=== PATIENT | female | born 2000 | race Caucasian/White ===

== ENCOUNTER → 2020-03-04 16:16 | Outpatient (CLI) | payer MEDICAID, SELFPAY ==
[2020-03-04 17:18] LABS: Absolute Lymphocyte Count 1.99 X10^3/uL (0.83-4.51); Basophil# 0.03 X10^3/uL; Basophil% 0.3 % (0-1); Eosinophil# 0.16 X10^3/uL; Eosinophils% 1.6 % (0-5); Hematocrit 39.4 % (37-47); Hemoglobin 13.4 g/dL (12.0-15.0); Lymphocyte # 1.99 X10^3/ul (4.0); Lymphocyte % 20.5 % (19-41); Mean Corpuscular Hgb 30.9 pg (27.0-32.0); Mean Platelet Vol. 11.6 fl (6.2-12.0); Monocyte% 5.1 % (0-10); NRBC Flagged by Analyzer 0 % (0-5); Neutrophil # 6.99 X10^3/uL (2.7-7.7); Neutrophil % 72.1 % (47-70); Platelet Count 237 K/mm3 (150-450); RBC Distribution Width CV 12.7 % (11.6-14.6); RBC Distribution Width SD 41.9 fl (35.1-43.9); Red Blood Count 4.33 M/mm3 (4.2-5.4); White Blood Count 9.7 K/mm3 (4.4-11.0)
[2020-03-04 17:21] LABS: Color, Urine Yellow (Yellow); Glucose, Dipstick Normal (Normal); Ketone-Dipstick Negative (Negative); Leukocyte Esterase-Dipstick 100 /ul (Negative); Nitrite-Dipstick Negative (Negative); Occult Blood-Urine Negative /ul (Negative); Protein-Dipstick 15 mg/dl (Negative); Urine Bilirubin Dipstick Negative (Negative); Urine Clarity Sl. Cloudy (Clear); Urine Urobilinogen Normal (Normal); Urine pH 6.5 (5.0 - 8.0)
[2020-03-04 17:48] LABS: Thyroid Stim Hormone (TSH) 0.62 uIU/mL (0.358-3.74)
[2020-03-04 17:54] LABS: Amphetamine Urine VISTA NEGATIVE (<1000 ng/mL); Barbiturate Urine VISTA NEGATIVE (< 200 ng/mL); Benzodiazepine Urine VISTA NEGATIVE (< 200 ng/mL); Cocaine Urine VISTA NEGATIVE (< 300 ng/mL); Ecstacy Urine VISTA NEGATIVE (< 500 ng/mL); Methadone Urine VISTA NEGATIVE (< 300 ng/mL); PCP Urine VISTA NEGATIVE (< 25 ng/mL); THC Urine VISTA POSITIVE (< 50 ng/mL); Vista UDS pH Range 7
[2020-03-04 19:12] LABS: Chlamydia Trachomatis by PCR Negative (Negative); Neisserai gonorrhoeae by PCR Negative (Negative); Probe Check PASS; Sample Adequacy Control PASS; Specimen Processing Control PASS
[2020-03-07 09:43] LABS: HIV - WCH Non-Reactive (Nonreactive); Hepatitis B Surface Antigen Non-Reactive (Nonreactive); Hepatitis C Antibody Non-Reactive (Nonreactive); Rubella IgG 141.5 IU/mL
[2020-03-10 02:00] LABS: Prenatal RPR NONREACTIVE (NONREACTIVE)
== END ==
PROVIDERS: Referring Provider Obstetrics & Gynecology; Visit Provider Obstetrics & Gynecology
DX: Z34.82 Encounter for supervision of other normal pregnancy, second trimester (principal)
CPT/HCPCS: 80307; 81002; 84443; 85025; 86703; 86762; 86803; 87340; 87491; 87591

== ENCOUNTER → 2020-06-29 10:41 | Outpatient (CLI) | payer MEDICAID, SELFPAY ==
[2020-06-29 14:01] LABS: Glucose Challenge Gest 1H 50g 92 mg/dL (70-140)
[2020-06-29 14:05] LABS: Hemoglobin 12.4 g/dL (12.0-15.0); Mean Corp Hgb Conc 32.6 g/dL (32-36); Mean Corpuscular Hgb 31.3 pg (27.0-32.0); Mean Platelet Vol. 11.8 fl (6.2-12.0); Platelet Count 195 K/mm3 (150-450); RBC Distribution Width CV 12.9 % (11.6-14.6); RBC Distribution Width SD 45.3 fl (35.1-43.9); Red Blood Count 3.96 M/mm3 (4.2-5.4); White Blood Count 11.8 K/mm3 (4.4-11.0)
== END ==
PROVIDERS: Visit Provider Obstetrics & Gynecology
DX: Z34.83 Encounter for supervision of other normal pregnancy, third trimester (principal)
CPT/HCPCS: 36415; 82950; 85027

== ENCOUNTER → 2020-08-18 15:47 | Outpatient (CLI) | payer MEDICAID, SELFPAY ==
[2020-08-18 18:12] LABS: Amphetamine Urine VISTA NEGATIVE (<1000 ng/mL); Barbiturate Urine VISTA NEGATIVE (< 200 ng/mL); Benzodiazepine Urine VISTA NEGATIVE (< 200 ng/mL); Cocaine Urine VISTA NEGATIVE (< 300 ng/mL); Ecstacy Urine VISTA NEGATIVE (< 500 ng/mL); Methadone Urine VISTA NEGATIVE (< 300 ng/mL); PCP Urine VISTA NEGATIVE (< 25 ng/mL); THC Urine VISTA POSITIVE (< 50 ng/mL); Vista UDS pH Range 6
== END ==
PROVIDERS: Visit Provider Obstetrics & Gynecology
DX: Z34.83 Encounter for supervision of other normal pregnancy, third trimester (principal); Z36.85 Encounter for antenatal screening for Streptococcus B
CPT/HCPCS: 80307; 87081

== ENCOUNTER 2020-09-16 07:50 | Inpatient (IN) | payer MEDICAID, SELFPAY ==
[2020-09-16] VITALS (23 sets, daily range): BP systolic 99–137; BP diastolic 54–89; PULSE 74–181; RESP 16–18; TEMP 36.1–36.9; O2SAT 49; BMI 31.5
[2020-09-16] MEDS: Lactated Ringers 1,000 ML 50 ML IV (08:15)
[2020-09-16 08:40] LABS: Absolute Lymphocyte Count 2.32 X10^3/uL (0.83-4.51); Absolute Neutrophil Count 8.6 X10^3/uL (2.0-7.7); Basophil# 0.03 X10^3/uL; Basophil% 0.2 % (0-1); Eosinophil# 0.54 X10^3/uL; Eosinophils% 4.3 % (0-5); Hematocrit 37.8 % (37-47); Hemoglobin 12.7 g/dL (12.0-15.0); Lymphocyte # 2.32 X10^3/ul (4.0); Lymphocyte % 18.6 % (19-41); Mean Corp Hgb Conc 33.6 g/dL (32-36); Mean Corpuscular Hgb 30.6 pg (27.0-32.0); Mean Corpuscular Volume 91.1 fL (81-99); Mean Platelet Vol. 11.2 fl (6.2-12.0); Monocyte# 0.93 X10^3/uL; Monocyte% 7.4 % (0-10); NRBC Flagged by Analyzer 0 % (0-5); Neutrophil # 8.58 X10^3/uL (2.7-7.7); Neutrophil % 68.7 % (47-70); Platelet Count 191 K/mm3 (150-450); RBC Distribution Width CV 12.8 % (11.6-14.6); RBC Distribution Width SD 41.7 fl (35.1-43.9); Red Blood Count 4.15 M/mm3 (4.2-5.4); White Blood Count 12.5 K/mm3 (4.4-11.0)
[2020-09-16] MEDS: Oxytocin 30 units/NS 500 ml 30 UNITS/500 ML IV.SOLN IV (08:42)
--- NOTE | 2020-09-16 09:07 | HP.PCM_ITS ---
History and Physical Date of Admission: 09/16/20 ACOG ANTEPARTUM RECORD - HISTORY AND PHYSICAL (09/16/2020) Name: KATIE PENNIGNTON History of This : This is a 20-year-old G2, P1 who presents for postdate induction. care has been eventful for the baby having right ventriculomegaly with a dangling choroid possible skeletal dysplasia. Maternal- medicine indicates it is okay for patient to be delivered at [facility]. OB Physician: MARY [place]'s Physician: [facility]..................................................................... : 2000 Age: 20 Address: [address] [place] [address] [address] RADER [address] [place] [address] Phone: (h) [phone] (o) [phone] Insurance Carrier: [facility] [id number] Emergency Contact: LORETA HERNANDEZ/SPOUSE [phone] ...................................................................... Final HEATHER: 09/08/20 By Ultrasound: PARITY: (G-Total Pregnancies P-Fullterm,Premature,Induced AB,Spont AB, Ectopics, Multiple,Living) HEATHER CONFIRMATION: By LMP: 12/03/19 Final HEATHER: 09/08/20 OB PROBLEM LIST: 15 minute 2nd stage with her first child AFP/CF testing declined today, will need consent signed as such. IUD AT DELIVERY Lagging growth: MFM noted IUGR, right ventriculomegaly with dangling choroid, possible skeletal dysplasia; OK for care delivery at [facility]; plan MFM u/s q 2 weeks, weekly NST until 32 wks then 2x/week ; no version or vacuum use during or Prefers no epidural Smokes 7 cigs per day, plans to quit ALLERGIES: No Known Drug Allergies MEDICATIONS: Augmentin 875 mg-125 mg tablet One pill by mouth twice a day 28 mg-800 mcg tablet daily SOCIAL HISTORY: Smoking - Smokes--advised to quit 7 per day Alcohol Use - denies drinking Diet - moderate, balanced diet Lifestyle - moderate stress lifestyle and single Exercise - none 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 Drug Use - denies use of street drugs Sexual Activity - [employer] Residence - Lives with SO/FO Place of - AYAZ Garsia Spouse-Sig Other Name - FOB- Loreta Hernandez Spouse-Sig Other Occupation - Labor Spouse-Sig Other Phone No - [phone] Children Name(s) - Pilo () PRIOR DELIVERY HISTORY DEL DATE GEST LAB WT LB WT OZ TYPE ANES LABOR TX Oct 05 40 12 8 7 Vag Local No ANTEPARTUM FLOW CHART VISIT GE RTC FU F F ND U U DATE WK MD WKS HT PN HR M SS BP ED WT ND GL D EF ST __ ____ ___ __ __ ___ __ __ __ ___ __ __ __ ___ __ 30 Aug JMW 6 37 V + + 112/68 sl 171 tr ne 4 85 -2 Aug 39 JMW 1 37 V + + 106/64 sl 174 - - 3 75 -2 14 Aug 38 CM 1 38 V + + 114/68 0 169 1+ - 07 Aug 37 CM + + 96/64 0 167 1+ - 03 Aug 37 JM 1 37 V + + 104/62 0 170 tr - 24 Nov 35 CM 1 35 V + + 110/70 tr 168 tr - 09 Jul 33 CM + + 102/60 tr 167 - - 29 Oct 32 CM 1 31 V + + 124/70 0 167 - - 22 Oct 31 CM 1 30 V + + 116/78 0 161 1+ ne 14 Jun 29 CH 2 28 V + + 102/68 0 162 1+ - 02 May 23 CH 4 21 on + 106/66 0 151 1+ - 05 May 04 CH 4 17 on US 104/50 0 145 tr - Apr 01 CH 3 + + 102/60 0 139 tr - Feb 26 CH 4 on US 90/60 0 141 tr - ANTEPARTUM NOTE(S): Sep 14 2020: Good FM and Induce Sep 05 2020: Good FM, reactive NST Aug 29 2020: Aug 22 2020: Aug 18 2020: see note Aug 09 2020: Jul 25 2020: Jul 14 2020: Jul 07 2020: Jun 29 2020: May 18 2020: Apr 20 2020: feeling well. Apr 04 2020: feeling well. Mar 07 2020: feeling well. NOB papers today. COMPREHENSIVE ANTEPARTUM NOTE(S): Sep 14 2020: Katie is here for PNV. States she is feeling increase perineal pressure. No LOF. No CTX. Has been having a pink mucousy discharge this week. Good FM. No edema currently but states she does swell some by end of day. Urine dipped tr and neg. LSS Sep 05 2020: Katie is here for her NST at 39 w 4 d. She states that she feels well, and notes good FM. She denies spotting/LoF. Katie states that she has some cramping/BH ctx's, all mild and irregular. Slight edema noted around ankles. NST reactive, read per Dr. Arauz. AW Aug 29 2020: Katie is here for NST then visit at 38.4w. Baby active. No edema. Urine 1+ protein and looks concentrated. Water given and reminded to drink. Irreg contr at home. None noted on monitor. NST read as reactive per Dr BLAKE. Would like cervix check today- labor 2 h w first baby and is 35 min away. DRAmina. Aug 29 2020: 38/4w visit. Resolved IUGR, ventriculomegaly. Potential skeletal dysplasia. NO operative delivery, even in c/s. Growth US this with MFM. NSTs early in week in our office, BPP with MFM. Declines term induction, would like membrane sweeping next week. Tobacco abuse, encouraged cessation. 2 cm in office today, NST REACTIVE. F/u 1w. CM Aug 25 2020: H taken to OB. tkg Aug 22 2020: Katie is here for visit following NST at 37.4 w. Baby active, No edema. Smells strongly of smoke. States 5-7 cigarettes daily. Urine concentrated w strong odor. Long dip done- Trace Leuks, 1+ protein, sg 1.010, pH 6.0 w remainder WNL. States hasn't had anything to eat or drink yet today. Large glass of water given and enc fluids. NST reactive per Dr BLAKE. DRAmina. Aug 22 2020: 37/4w visit. NST REACTIVE. skeletal dysplasia and ventriculomegaly. Resolved IUGR. Seeing MFM. F/u 1w. CM Aug 18 2020: Reviewed FM, SROM, and labor. Influenza and Tdap encouraged. Tox screen sent today with GBS. Intererested in LARC, wants IUD placed after delivery. LMT Aug 18 2020: 37wk, saw MFM for BPP today. Records pending. NST saturday, BPP via MFM . GBS collected today, drug screen today. Pt desires immediate IUD at delivery, r/b/a discussed. Desires 41wk IOL. JM Nov 24 2020: 35/5w visit. IUGR resolved on last US EFW/AC both 16%. NST reactive today, next Saturday at 1630 on L. Ventriculomegaly stable. F/u 1w. CM Aug 09 2020: Katie is here for NST and visit. Baby active. Minimal edema. Cont to smoke about 5, maybe 5-9 cigarettes daily. Urine concentrated. Water given and fluids enc. NST read as ractive by Dr BLAKE. Plans to breastfeed. AJY. Jul 25 2020: 33/4w visit. IUGR per MFM based on AC 10% (EFW 17%) on last growth US. Twice weekly testing. Getting mixed messages from M - will call and confirm what MRI showed. Will need IOL 38-38/ if continued IUGR. growth US q2w. Smoking cessation. F/u 2w. CM Jul 25 2020: Katie is here for NST and visit at 33.4 w. Baby active. Minimal edema in ankles. Some days in toes per pt. Rings off easily. Cont to smoke 4-9 cigarettes daily. Enc to cut down. Diet discussed and enc more protein intake alma w close pregnancies. NST read as reactive by Dr BLAKE. JAY. Jul 14 2020: [facility] visit 07/01/20 w/plan to follow up q 2 wks [facility]. NST's 2 x weekly. NST this morning. She has been feeling well. Good FM. Jul 14 2020: 32/0 w visit. complicated by: IUGR getting q2w growth US, MRI 07/12 has f/u today for results. NST today REACTIVE. F/u 1w with 2x weekly NSTs. CM Jul 07 2020: Katie is here for PNV. States she is feeling real good. Good FM. No issues with swelling/edema. Eating well and getting fluids. Urine dipped 1+ and neg. No concerns for today. LSS Jul 07 2020: 31/0w PNV. complicated by: IUGR getting q2w growth US (next is 07/14), anomalies (right ventriculomegaly) getting MRI on Thursday 07/12. WIll need 2x weekly testing after 32w. Feeling well today with good FM. F/u 1w Jun 29 2020: Katie is here today for her PNV. Good FM. No edema present today. 1+ protein in UA today. States that for the past 10 days she has tingling on pelvic floor. The tingling is one time a day that does not last very long then it is gone. Medications and allergies reviewed today. No other complaints or concerns expressed today. [facility] Jun 29 2020: Reports that she has appt with [facility] this Saturday after she missed her last one. Understands sons diagnosis and per patient he will be a little person, but he does have a big head. I might need a csection. Rpeorts that her genetic testing was negative. Her boyfriends phone is back on and can reach her through him. Feeling good FM. FHR 138. Overall feeling well and seems nonchalant about dx. To return in 1 week per [facility] directive of weekly appts then at 32 weeks twice weekly appts. Will continue Q2 week Ultrasounds and BPPs with [facility] May 18 2020: Katie is here today for her PNV. She is doing good. Good FM and US today. No edema present today. Medications and allergies reviewed today. GCT given today to be drawn at next visit. No questions or concerns expressed today. [facility] May 18 2020: Follow up US today is still SGA <10th%, FL 7%, HC 12% and AC 4.5%. 4C heart and kidneys visualized with PORTIA WNL. Is agreeable to referral to [facility] for genetic counseling counseling and US. Advised her they would then give us a POC to follow. SHe does not have a phone or BF either. She will call us Saturday to see if we have an appt scheduled. Needs to return here in 6 weeks for third trimester labwork because she will be gone the 2.5 weeks prior. GLucola given with instructions. To call with questions or concerns. _ Apr 20 2020: Anatomy US today reveals SGA fetus with EFW <10th%. FL <10th% and HC <12th%. First son was 8lb7oz. Gender sent home in an envelope. FHR on US 144. All anatomy visualized and WNL with exception of kidneys and 4ch heart having limited views. Feeling movement. Has no questions or concerns. Will return in 4 weeks for routine PNV and repeat US then possible referral to [facility] . - Apr 04 2020: Reports +FM two weeks ago, but hasn't felt anything since. Cannot find FHR with doppler. Bedside US by provider shows FHR int he 120s with good FM . Feeling well with no questions or concerns. To return in 2-3 weeks for anatomy US and PNV. - Mar 24 2020: TELEHEALTH NOB VISIT. Katie is a 20 year old with an HEATHER of 09/08/2020, current GA is 16 w 0 d. She resides with /FO, Loreta Hernandez, and their 7 month old son. Past history updated. Delivery at [facility] is planned, she prefers not to have an epidural, and will breastfeed. She nursed her son for 5 months. Office practice patterns reviewed, labs have been collected. Emergencies/danger signs to report, how to contact the office during/after hours, round ligament pain, reporting a suspected UTI, and common OTC medications approved/not approved for use during reviewed. She states that she still has some N/V, as she did throughout her first , and states that the nausea is mostly in the morning then she feels okay the rest of the day. Reviewed measures that may help minimize nausea, including small frequent, balanced meals with protein included throughout day, adequate water hydration of at least 1 gallon per 24 hours, trying carb rich foods when nauseated, and trying motion sickness bracelets. She takes an OTC vitamin and states that she tolerates this well. Katie has an aunt with Down Syndrome, no other history noted on Genetic Screening form. Initially she was undecided about AFP/CF testing, but states today that she will decline both. She denies any history of depression/anxiety; EPDS on 03/07/2020: 1. She smokes 7 cigs per day, and is planning to quit. Katie denies use of drugs or ETOH. water/caloric/dietary needs, including recommended weight gain, limiting empty calories, limiting caffeien to one cup a day, and food safety, reviewed. She takes walks several times a week, and plans to continue to do so. lifting restrictions reviewed. She states that she understands all information provided during 40 minute NOB telephone visit, and has no questions following same. AW Mar 07 2020: Dating US today reveals HEATHER of 12/24/20 consistent with LMP. GA 13w4d. FHR 173. NOB RN visit to be scheduled today. EPDS=1. To return in 4 weeks for routine PNV. - Mar 04 2020: Katie is being seen for missed menses visit. Pt is new to practice. 20 year old. Smoker. . UPT in office is positive. LMP 12/03/19. Pt is about 13 weeks and 1 day. HEATHER 09/08/20. Pt has had n/v on and off. Pt had 09/17/19 at [place] and had n/v her whole . Pt just recently stopped . Pt is unsure if she has ever had a pap. Cervical cultures to be done on urine. information reviewed and given to pt. Medications and allergies are up to date. Mar 04 2020: See above note. Will have Turkish twins. Were not trying, but not preventing eiher. FHR 160's. Will need US next week with PNV and NOB RN visit. Had labs drawn today and reviewed no news is good news. Nurse reviewed all education with her and no questions. - REVIEW OF SYSTEMS: GENERAL - Denies fever, or chills SKIN - Denies rash, new skin lesions, or change in moles EYES - Denies blurred vision, or change in visual acuity EARS - Denies ear pain, or difficulty hearing NOSE - Denies nasal congestion, discharge, or bleeding MOUTH - Denies sore throat, or difficulty swallowing NECK - Denies pain or swelling RESPIRATORY - Denies shortness of breath, cough, wheezing CARDIOVASCULAR - Denies palpitations, chest pain, orthopnea, PND, peripheral edema, syncope or claudication GASTROINTESTINAL - Denies nausea, vomiting, diarrhea, constipation, Denies abdominal pain, melena and or bright red blood GENITOURINARY - Denies dysuria, frequency of urination, urgency, or hesitancy MUSCULOSKELETAL - Denies joint or muscle pain, or back pain NEUROLOGICAL - Denies localized numbness, weakness, or tingling PSYCHIATRIC - Denies depression, anxiety, substance abuse or suicide attempts ENDOCRINE - Denies heat or cold intolerance, weight loss or gain, increasing thirst HEMATO-IMMUNOLOGIC - Denies easy bruising, bleeding, oral ulcerations or recurrent infections GENETICS SCREENING: Age 35+ years: No Thalassemia: No Neural Tube Defect: No Down Syndrome: Yes Aunt NAMRATA-SACHS: No Sickle Cell Disease: No Hemophilia: No Musc. Dystrophy: No Cystic Fibrosis: No-declines screening [place] Chorea: No Mental Retardation: No Fragile X: No Other genetic: No Other defects: No SABs/still births: No Drugs since LMP: No INFECTION HISTORY: High risk AIDS: No High risk Hepatitis: No Exposed to TB: No Exposed to Herpes: No Rash/viral illness since LMP: No History of STD: No MENSTRUAL HISTORY: *Menses Amount/Duration: 5 to 7 daysMenses Regularity: RegularFrequency: monthly* PAST SUMMARY: PARITY: 1. Total Pregnancies............ 2 2. Full Term Pregnancies........ 1 3. Premature.................... 0 4. Abortions - Induced.......... 0 5. Abortions - Spontaneous...... 0 6. Ectopics..................... 0 7. Multiple Births.............. 0 8. Living Children.............. 1 PAST #1: Date of :.................. 09/17/19 Gestation Weeks:................ 40 Length of labor(hours):......... 12 Sex:............................ M Weight-lbs:............... 8 Weight-oz:................ 7 Type of Delivery:............... Vag Type of Anesthesia:............. Local Place of Delivery:.............. [place] Treatment of Labor?:.... No Comment: 15 MIN 2ND STAGE PHYSICAL EXAMINATION General Appearence: 20 yo female in no acute distress Vital Signs: AF, VSS Heart: RRR without rubs or gallops Lungs: CTA x 2 Breasts: deferred Abdomen: gravid Pelvis: Cervix: 4 to 5 cm, 80% effaced, rupture of membranes clear fluids Presentation: cephalic Station: -2 Fetus: Size: AGA Movement: present Heart: present Labs for : KATIE PENNINGTON since 12/13/2019 ORDER DATEIN DESCRIPTION VALUE UNITS RANGE A+ COMMENT COVID 19 AG RAPID (RN COLLECT) 09/16/20 NOTE Original Ordering Provider: Linda Arauz COVID AG -RAPID *Negative results from patients with symptom onset beyond five days should be treated as presumptive and confirmed by a molecular assay if clinically necessary. Negative results should not be used as the sole basis for treatment or for patient management. *Positive results do not differentiate between SARS-CoV and SARS-CoV-2. If differentation of the specific SARS virus is desired an additional sample and an additional order is required. * This test has not been FDA cleared or approved; the test has been authorized by FDA under an Emergency Use Authorization (EAU) for use by laboratories certified under CLIA that meet the requirements to perform moderate, high, or waived complexity tests. Normal Reference Range: Negative Testing performed on PowerOasis analyzer BRIAN (lateral flow immunofluorescent assay) SARS-CoV-2 (COVID 19) Negative CBC W/DIFF, AUTOMATED 09/16/20 NOTE Original Ordering Provider: Linda Arauz WBC 12.5 K/mm3 4.4-11.0 H RBC 4.15 M/mm3 4.2-5.4 L HGB 12.7 g/dL 12.0-15.0 HCT 37.8 % 37-47 MCV 91.1 fL 81-99 MCH 30.6 pg 27.0-32.0 MCHC 33.6 g/dL 32-36 RDW CV 12.8 % 11.6-14.6 RDW SD 41.7 fl 35.1-43.9 PLT 191 K/mm3 150-450 MPV 11.2 fl 6.2-12.0 NEUT% 68.7 % 47-70 LY% 18.6 % 19-41 L MONO% 7.4 % 0-10 EO% 4.3 % 0-5 BASO% 0.2 % 0-1 IM GRAN % 0.800 % 0.0-0.9 IG% - Immature Granulocytes (promyelocytes, myelocytes and metamyelocytes) > 1% indicates that a LEFT SHIFT is Present. ABSOLUTE NEUT 8.6 X10 3/uL 2.0-7.7 H ABSOLUTE LYMPH 2.32 X10 3/uL 0.83-4.51 NRBC, FLAGGED 0 % 0-5 CULTURE, GROUP B STREPTOCOCCUS 08/18/20 NOTE Original Ordering Provider: Jaylan Chavis RELABELING DANIEL Culture Group B Beta Streptococcus is not isolated. Reviewed by MARY URINE DRUG SCREEN (VISTA) 08/18/20 NOTE Original Ordering Provider: Jaylan Chavis TO BE CONFIRMED CONFIRMATORY TESTING FOR ALL POSITIVE URINE DRUG SCREEN RESULTS WILL ONLY BE SENT OUT UPON PHYSICIAN ORDER. [facility]IST[facility] Urine Drug Screen methods provide only preliminary analytical test results. A more specific alternate chemical method must be used in order to obtain a confirmed analytical result. Gas chromatography/mass spectrometery (GC/MS) is the preferred confirmatory method. Clinical consideration and professional judgement should be applied to any drug of abuse test result, particularly when preliminary positive results are used. URINE TCA TESTING MUST BE ORDERED SEPARATELY. USE TEST MNEMONIC: [facility] UDS PH 6 AMPHETAMINES NEGATIVE <1000 ng/mL BARBITIURATES NEGATIVE < 200 ng/mL BENZODIAZIPINE NEGATIVE < 200 ng/mLw COCAINE NEGATIVE < 300 ng/mL ECSTACY NEGATIVE < 500 ng/mL METHADONE NEGATIVE < 300 ng/mL OPIATES NEGATIVE w < 300 ng/mL PCP NEGATIVE < 25 ng/mL THC POSITIVE < 50 ng/mL H Reviewed by PALMAR CBC-COMPLETE BLOOD CNT NO DIFF 06/29/20 NOTE Original Ordering Provider: HALLIE Taylor WBC 11.8 K/mm3 4.4-11.0 H RBC 3.96 M/mm3 4.2-5.4 L HGB 12.4 g/dL 12.0-15.0 HCT 38.0 % 37-47 MCV 96.0 fL 81-99 w MCH 31.3 pg 27.0-32.0 MCHC 32.6 g/dL 32-36 RDW CV 12.9 % 11.6-14.6 RDW SD 45.3 fl 35.1-43.9 H PLT 195 K/mm3 150-450 MPV 11.8 fl 6.2-12.0 Reviewed by LINDA GLUCOSE CHALLENGE GEST 1H 50G 06/29/20 NOTE Original Ordering Provider: HALLIE Taylor GLU GEST 50G 1H 92 mg/dL 70-140 Reviewed by LINDA RPR 03/04/20 NOTE Original Ordering Provider: HALLIE Taylor RPR NONREACTIVE NONREACTIVE Reviewed by FAVIOLA HEPATITIS C ANTIBODY 03/04/20 NOTE Original Ordering Provider: HALLIE Taylor HEPATITIS C AB Non-Reactive Nonreactive Non Reactive: < 0.8 Equivocal: >/= 0.8 to < 1.0 Reactive: >/= 1.0 The CDC recommends that a reactive/equivocal HCV antibody result be followed up by the HCV Nucleic Acid Amplification test ([id number]) Reviewed by FAVIOLA HEPATITIS B SURFACE ANTIGEN 03/04/20 NOTE Original Ordering Provider: HALLIE Taylor HEPB SURFACE AG Non-Reactive Nonreactive Reviewed by FAVIOLA HIV - [facility] 03/04/20 NOTE Original Ordering Provider: HALLIE Taylor HIV - [facility] Non-Reactive Nonreactive Reviewed by FAVIOLA skaggs RUBELLA IGG 03/04/20 NOTE Original Ordering Provider: HALLIE Taylor RUBELLA IGG 141.5 IU/mL Antibody results Interpretation of Immune Status < 5 IU/ml Presumed Non-immune 5 - < 10 IU/ml Equivocal > or = 10 IU/ml Presumed Immune Reviewed by FAVIOLA CT/ANDREAS [facility] BY PCR 03/04/20 NOTE Original Ordering Provider: HALLIE Taylor CHLAM TRAC PCR Negative Negative NG BY PCR Negative Negative Reviewed by FAVIOLA T AND S-NO CHARGE W/PNP 03/04/20 Reason for Type AND Screen/Red Cells: Surgery? N [facility]~[address] [place], [address]~ BLOOD TYPE GEL O POSITIVE N AB SCREEN GEL NEGATIVE N Reviewed by FAVIOLA URINE DRUG SCREEN (VISTA) 03/04/20 NOTE Original Ordering Provider: HALLIE Taylor TO BE CONFIRMED CONFIRMATORY TESTING FOR ALL POSITIVE URINE DRUG SCREEN RESULTS WILL ONLY BE SENT OUT UPON PHYSICIAN ORDER. [facility]IST[facility] Urine Drug Screen methods provide only preliminary analytical test results. A more specific alternate chemical method must be used in order to obtain a confirmed analytical result. Gas chromatography/mass spectrometery (GC/MS) is the preferred confirmatory method. Clinical consideration and professional judgement should be applied to any drug of abuse test result, particularly when preliminary positive results are used. URINE TCA TESTING MUST BE ORDERED SEPARATELY. USE TEST MNEMONIC: [facility] UDS PH 7w AMPHETAMINES NEGATIVE <1000 ng/mL BARBITIURATES NEGATIVE < 200 ng/mL BENZODIAZIPINE NEGATIVE < 200 ng/mL COCAINE NEGATIVE < 300 ng/mL ECSTACY NEGATIVE < 500 ng/mL METHADONE NEGATIVE < 300 ng/mL OPIATES NEGATIVE < 300 ng/mL w PCP NEGATIVE < 25 ng/mL THC POSITIVE < 50 ng/mL H Reviewed by FAVIOLA THYROID STIM HORMONE (TSH) 03/04/20 NOTE Original Ordering Provider: HALLIE Taylor TSH 0.62 uIU/mL 0.358-3.74 Reviewed by FAVIOLA URINALYSIS, ROUTINE (DIPSTICK) 03/04/20 NOTE Original Ordering Provider: HALLIE Taylor COLOR Yellow Yellow CLARITY Sl. Cloudy Clear GLUCOSE, UR Normal mg/dl Normal BILIRUBIN URINE Negative mg/dL Negative KETONE UR Negative mg/dl Negative SP.GR. DIPSTX 1.020 1.002-1.030 PH UR 6.5 5.0 - 8.0 PROT DIPSTX 15 mg/dl Negative H UROBILI Normal mg/dl Normal NITRITE UR Negative Negative OCCULT BLOOD-UR Negative /ul Negative LEUK ESTERASE 100 /ul Negative H Reviewed by FAVIOLA CBC W/DIFF, AUTOMATED 03/04/20 NOTE Original Ordering Provider: HALLIE Taylor WBC 9.7 K/mm3 4.4-11.0 RBC 4.33 M/mm3 4.2-5.4 HGB 13.4 g/dL 12.0-15.0 HCT 39.4 % 37-47 MCV 91.0 fL 81-99 MCH 30.9 pg 27.0-32.0 MCHC 34.0 g/dL 32-36 RDW CV 12.7 % 11.6-14.6 RDW SD 41.9 fl 35.1-43.9 PLT 237 K/mm3 150-450 MPV 11.6 fl 6.2-12.0 NEUT% 72.1 % 47-70 H LY% 20.5 % 19-41 MONO% 5.1 % 0-10 EO% 1.6 % 0-5 BASO% 0.3 % 0-1 IM GRAN % 0.400 % 0.0-0.9 IG% - Immature Granulocytes (promyelocytes, myelocytes and metamyelocytes) > 1% indicates that a LEFT SHIFT is Present. ABSOLUTE NEUT 7.0 X10 3/uL 2.0-7.7 ABSOLUTE LYMPH 1.99 X10 3/uL 0.83-4.51 NRBC, FLAGGED 0 % 0-5 Reviewed by FAVIOLA Impression /Plan: 41+ week intrauterine for Pitocin and rupture of membranes. Preparations in progress for delivery.
[2020-09-16 10:50] LABS: Amphetamine Urine VISTA NEGATIVE (<1000 ng/mL); Barbiturate Urine VISTA NEGATIVE (< 200 ng/mL); Benzodiazepine Urine VISTA NEGATIVE (< 200 ng/mL); Cocaine Urine VISTA NEGATIVE (< 300 ng/mL); Ecstacy Urine VISTA NEGATIVE (< 500 ng/mL); Methadone Urine VISTA NEGATIVE (< 300 ng/mL); PCP Urine VISTA NEGATIVE (< 25 ng/mL); THC Urine VISTA POSITIVE (< 50 ng/mL); Vista UDS pH Range 5
[2020-09-16] MEDS: Oxytocin 30 units/NS 500 ml 30 UNITS/500 ML IV.SOLN 334 UNITS IV (11:15)
--- NOTE | 2020-09-16 11:27 | PCM.OPRPT ---
Vaginal Delivery Maternal Presentation: Medically Indicated Induction Method of Induction: Pitocin, Amniotomy Medical Reason for Induction: Post term Amniotic Membrane Rupture Type: Artificial Amniotic Fluid Description: Clear Final HEATHER: 09/08/20 Final HEATHER Source: US <20 weeks Gestational age: 41 Weeks and 1 Days [place] doctor who attended delivery (if requested by OB): Joel Cook Date of Procedure: 09/16/20 Pre-Operative Diagnosis: IUP Post-Operative Diagnosis: IUP Surgery/ Procedure Performed: Spontaneous Vaginal Delivery Type of Anesthesia: None Description of Procedure: Spontaneous vaginal delivery of a viable male infant with Apgars of 9/9 from an occiput anterior presentation with clear amniotic fluid and normal three-vessel placenta. No episiotomy. First-degree midline laceration repaired with 3-0 Rapide suture. Arterial and venous blood gases sent. Sponges okay. Delivery physician: Kenny Arauz MD. Presentation: Vertex Placental Delivery Description: Spontaneous Placenta Disposition: [facility] Cord Vessel Description: 3 Vessels Cord Gases drawn per routine: ABG, VBG Cord Entanglement: None Estimated Blood Loss: 250 cc Infant A gender: Male (1 minute): 9 (5 minute): 9 Episiotomy Description: None Laceration: Midline, 1st degree Medications given after delivery: IV Pitocin Complications: None
--- NOTE | 2020-09-16 11:31 | DCINST_ITS ---
Discharge Activity: May Shower, May Take a Tub Bath May resume sexual activity in: 4-6 weeks Additional Activity Instructions:: Nothing in the vagina for 4-6 weeks. You may return to work/school in 6 weeks. Call your doctor if you observe: Inability to urinate, Inability to have a bowel movement, Using more than one pad per hour Additional Instructions: If you experience any of the following, contact your healthcare provider. * Bleeding that soaks a pad every hour for 2 hours * Fever 100.4 or higher * Unrelieved incision or abdominal pain * Swelling, redness, discharge or bleeding from your incision or episiotomy site * Your incision begins to separate * Problems urinating (including inability to urinate or burning while urinating). * Visual changes * Severe headache * Flu-like symptoms * Pain or redness in one of both of your breasts * Pain, warmth, tenderness or swelling in your legs, especially the calf area * Frequent nausea and vomiting * Symptoms of depression or anxiety If you experience any of the following, call 911 or go to the nearest Emergency Room. * Chest pain * Problems breathing * Seizure activity * Partial or complete paralysis of a body part, slurred speech, weakness or drooping of the face, or a sudden inability to walk or hold your balance Allergies/Adverse Reactions: Allergies No Known Allergies Allergy (Verified 09/16/20 08:22) Please Follow Up With: Kenny Arauz MD - [phone] When: Call to make an appointment with your doctor in 6 weeks. Test Results: Test results from this visit will be discussed in further detail at your follow- up appointment, if applicable.
--- NOTE | 2020-09-16 11:31 | PCM.DCVAG ---
Discharge Activity: May Shower, May Take a Tub Bath May resume sexual activity in: 4-6 weeks Additional Activity Instructions:: Nothing in the vagina for 4-6 weeks. You may return to work/school in 6 weeks. Call your doctor if you observe: Inability to urinate, Inability to have a bowel movement, Using more than one pad per hour Additional Instructions: If you experience any of the following, contact your healthcare provider. Bleeding that soaks a pad every hour for 2 hours Fever 100.4 or higher Unrelieved incision or abdominal pain Swelling, redness, discharge or bleeding from your incision or episiotomy site Your incision begins to separate Problems urinating (including inability to urinate or burning while urinating). Visual changes Severe headache Flu-like symptoms Pain or redness in one of both of your breasts Pain, warmth, tenderness or swelling in your legs, especially the calf area Frequent nausea and vomiting Symptoms of depression or anxiety If you experience any of the following, call 911 or go to the nearest Emergency Room. Chest pain Problems breathing Seizure activity Partial or complete paralysis of a body part, slurred speech, weakness or drooping of the face, or a sudden inability to walk or hold your balance Allergies/Adverse Reactions: Allergies No Known Allergies Allergy (Verified 09/16/20 08:22) Please Follow Up With: Kenny Arauz MD - [phone] When: Call to make an appointment with your doctor in 6 weeks. Test Results: Test results from this visit will be discussed in further detail at your follow-up appointment, if applicable.
[2020-09-16] MEDS: 0.9% Saline Lock 10 ML Syringe IV (14:17)
[2020-09-17] VITALS (7 sets, daily range): BP systolic 115–128; BP diastolic 56–88; PULSE 77–106; RESP 18–20; TEMP 36–36.5
--- NOTE | 2020-09-17 11:10 | PCM.PN.OB ---
Subjective: Patient without complaints. Minimal vaginal bleeding reported breast-feeding going well. Considering going home later today. - Physical Exam Vitals/I&O's: Vital Signs Temp Pulse Resp BP Pulse Ox 97.4 F L 88 18 115/56 L 49 09/17/20 04:21 09/17/20 08:40 09/17/20 04:21 09/17/20 08:40 09/16/20 19:37 Oxygen Delivery Method Room Air Weight: 172 lb 6.424 oz Body Mass Index (BMI) 31.5 Intake and Output for Last 24 Hours 09/15/20 09/16/20 09/17/20 23:59 23:59 23:59 Intake Total 679.93 / 679.93 Output Total 1000 / 1000 Balance -320.07 / -320.07 Microbiology Past 72 Hours 09/16/20 08:15 Mucosa - Nose SARS-CoV-2 Antigen (Rapid) - Final Current Medications Acetaminophen (Acetaminophen 500 Mg Tablet) 1,000 mg PO Q8H PRN PRN PRN Reason: Pain Score 1-3 Bisacodyl (Bisacodyl 10 Mg Suppository) 10 mg RECTAL UD PRN PRN Reason: If no BM Dibucaine (Dibucaine 30 Gm Tube) 1 applic TOPICAL TID PRN PRN; Protocol PRN Reason: Discomfort Hydrocortisone (Hydrocortisone 2.5% Crm) 1 applic TOPICAL TID PRN PRN; Protocol PRN Reason: Discomfort Ibuprofen (Ibuprofen 600 Mg Tablet) 600 mg PO Q6H PRN PRN PRN Reason: Pain Score 1-3 Methylergonovine Maleate (Methylergonovine 0.2 Mg/Ml Ampul) 0.2 mg IM X1 PRN PRN Reason: Excess bleeding/uterine atony Ondansetron HCl (Ondansetron 4 Mg/2 Ml Vial) 4 mg IV Q4H PRN PRN PRN Reason: Nausea Oxycodone HCl (Oxycodone 5 Mg Tablet) 5 - 10 mg PO Q4H PRN PRN PRN Reason: Pain Score 4-10 Senna/Docusate Sodium (Senna/Docusate Sodium 1 Tablet) 1 - 2 tablet PO DAILY PRN PRN PRN Reason: Constipation Simethicone (Simethicone 80 Mg Tablet) 80 mg PO PCHS PRN PRN Reason: Indigestion/Stomach pain Sodium Chloride (0.9% Saline Lock 10 Ml Syringe) 5 - 15 ml IV UD PRN PRN Reason: SALINE FLUSH Last Admin: 09/16/20 14:17 Dose: 10 ml Documented by: Zolpidem Tartrate (Zolpidem Tartrate 5 Mg Tablet) 5 mg PO QHS PRN PRN PRN Reason: Insomnia Medical Necessity - Tobacco Use Smoking Status: Light Smoker (<10/day) Assessment/Plan Doing well day #1 status post routine spontaneous vaginal delivery. Will discharge to home with routine instructions.
--- NOTE | 2020-09-17 12:00 | CASEMGMT ---
Social Work Assessment Labor and Delivery Unit Date of Referral: 09/16/2020 Time of Referral: 21:56 Date of Intervention: 09/17/2020 Time of Intervention: 12:00p Reason for Referral: Substance use-THC during . History obtained from: Medical chart and mother of baby (MOB) Household composition: MOB, FOB- Jordan Hernandez and son, Pilo (1 year old) Financial Status: Limited. FOB works for [employer]. 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 FOB states due to holiday business are closed and unable to get window fixed. Family will be coming to hospital to transport MOB, FOB and cesar Peng home. Programs/Agencies Involved: [employer], [employer], Food stamps, [facility] Children Services/Legal Issues: MOB and FOB deny any history with children services. Behavioral Health Issues: Mental Health History: MOB denies any history of mental health. FOB reports ?some depression and anxiety? for self. FOB denies any treatment with counseling or medications. Substance Use History: FOB and MOB admit to marijuana use. FOB reports has been using marijuana for 5 years due to epilepsy. MOB reports recreational use of marijuana over the last 2 years. MOB reports to marijuana use during for ?pain?. MOB and FOB aware of report to be made to Children Services. Maternal and Infant Drug Screens: MOB and Danish gonzalez positive for marijuana. Meconium has been collected. Support Systems: MOB and FOB report good support from family and friends. Depression and Anxiety/Shaken Baby/Safe Sleeping: Reviewed and resources provided. ASSESSMENT: Met with MOB and FOB in room. Introduced role and reason for referral. MOB and FOB openly discussed marijuana use. FOB reports has been using marijuana over the last 5 years due to epilepsy and states physician has recommended he obtain medical marijuana card. MOB states has been smoking marijuana over the last 2 years, mostly recreationally, however, did use during due to pain. Explained this worker will be making a report to children services due to positive drug screen for MOB and baby. MOB and FOB verbalized understanding. MOB and FOB deny any needs for home going. Report made to [place] with [facility] due to marijuana use during and positive screen for MOB and baby. Safe Plan of Care for related to substance use: FOB reports will not smoke in the home. MOB states does not plan to use once home. PLAN: Home with resources provided. No other services requested or indicated. Sonia Keller, [employer]SEM[employer]ER, [employer] P[employer]ER
== END 2020-09-17 17:05 | disposition home or self-care (01) | DRG 560 ==
PROVIDERS: Admitting Provider Obstetrics & Gynecology; Referring Provider Obstetrics & Gynecology; Visit Provider Obstetrics & Gynecology
DX: O48.0 Post-term pregnancy (principal); Z3A.41 41 weeks gestation of pregnancy; Z37.0 Single live birth; O36.5930 Maternal care for other known or suspected poor fetal growth, third trimester, not applicable or unspecified; O35.8XX0 Maternal care for other (suspected) fetal abnormality and damage, not applicable or unspecified; F17.210 Nicotine dependence, cigarettes, uncomplicated; O99.334 Smoking (tobacco) complicating childbirth; O70.0 First degree perineal laceration during delivery
CPT/HCPCS: 59025; 59050; 80307; 85025; 86850; 86900; 86901; 87426; 99218; J7120; A4216; G0378

== ENCOUNTER → 2020-10-27 14:36 | Outpatient (CLI) | payer MEDICAID, SELFPAY ==
[2020-09-16 08:24] VITALS: BMI 31.5
[2020-11-02 16:32] LABS: HPV Reflexed? NOT INDICATED
== END ==
PROVIDERS: Visit Provider Student in an Organized Health Care Education/Training Program
DX: Z12.4 Encounter for screening for malignant neoplasm of cervix (principal)
CPT/HCPCS: 88175; G0145